=== PATIENT | female | born 1950 | race Caucasian/White ===

== ENCOUNTER → 2016-08-07 | Outpatient (CLI) | payer BC, OTHER ==
[2016-08-07 11:40] LABS: ALKALINE PHOSPHATASE 93 U/L (45-117); ALT/SGPT 46 U/L (12-78); AST/SGOT 20 U/L (15-37); BLOOD UREA NITROGEN 18 mg/dl (7-18); BUN/CREATININE RATIO 23.3 (10-20); CALCIUM 9.3 mg/dl (8.5-10.1); CARBON DIOXIDE 26 mmol/L (21-32); CHLORIDE 106 mmol/L (98-107); CREATININE 0.79 mg/dl (0.60-1.20); GLUCOSE 102 mg/dl (70-99); POTASSIUM 3.8 mmol/L (3.5-5.1); SODIUM 143 mmol/L (136-145)
[2016-08-07 11:46] LABS: ALB/GLOB RATIO 1.2 (0.9-2); CHOLESTEROL 138 mg/dl (0-200); CHOLESTEROL/HDL RATIO 2.5; HDL CHOLESTEROL 55 mg/dl; LDL CHOLESTEROL CALCULATED 60 mg/dl; TRIGLYCERIDES 113 mg/dl (0-150); VERY LOW DENSITY LIPOPROT CALC 23 mg/dl
== END | disposition home or self-care (01) ==
LOC: C.LAB1850 07:53
PROVIDERS: ATTEND Internal Medicine
DX: I25.10 Atherosclerotic heart disease of native coronary artery without angina pectoris (principal); E78.00 Pure hypercholesterolemia, unspecified

== ENCOUNTER → 2017-03-20 | Outpatient (CLI) | payer BC, OTHER ==
--- NOTE | 2017-03-21 14:21 | MAMMOGRAPHY REPORT ---
BILATERAL DIGITAL SCREENING MAMMOGRAM TOMOSYNTHESIS WITH CAD: 03/20/2017 CLINICAL HISTORY: Routine screening. Patient has no complaints. TECHNIQUE: Breast tomosynthesis in addition to standard 2D mammography was performed. Current study was also evaluated with a Computer Aided Detection (CAD) system. COMPARISON: Comparison is made to exams dated: 03/16/2016 mammogram, 03/30/2015 mammogram, 03/16/2015 [facility] - [facility], and 07/16/2012 mammogram - [facility]. BREAST COMPOSITION: There are scattered areas of fibroglandular density in both breasts. FINDINGS: The parenchymal pattern is unchanged. No developing mass, architectural distortion or clus ter of suspicious microcalcifications is seen in either breast. IMPRESSION: ACR BI-RADS CATEGORY 2: BENIGN There is no mammographic evidence of malignancy. A 1 year screening mammogram is recommended. The pa tient will receive written notification of the results. Approximately 10% of breast cancers are not detected with mammography. A negative mammographic report should not delay biopsy if a clinically suggestive mass is present. Kanwal Ellington M.D. ay/:03/20/2017 18:24:40 Security Screener: Genevieve Gibbons [facility] letter sent: Normal 1/2 BI-RADS Code: ACR BI-RADS Category 2: Benign
== END | disposition home or self-care (01) ==
LOC: C.MAMM 07:10
PROVIDERS: ATTEND Internal Medicine
DX: Z12.31 Encounter for screening mammogram for malignant neoplasm of breast (principal)

== ENCOUNTER → 2017-03-26 | Outpatient (CLI) | payer BC, OTHER ==
[2017-03-26 10:34] LABS: BASO % 0.5 %; BASO ABS # 0.03 K/uL (0-0.2); COMPLETE YES; EOS % 3.8 %; HEMATOCRIT 48.3 % (37-47); IG% 0.3 %; LYMPH % 38.8 %; LYMPH ABS # 2.54 K/uL (1.2-3.4); MEAN CELL VOLUME 97.6 fL (80-100); MEAN CORPUSCULAR HEMOGLOBIN 33.5 pg (25-34); MEAN CORPUSCULAR HGB CONC 34.4 g/dl (32-36); MONO % 8.5 %; NEUT % 48.1 %; PLATELET COUNT 211 K/uL (130-400); RED BLOOD COUNT 4.95 M/uL (4.2-5.4); WHITE BLOOD COUNT 6.55 K/uL (4.8-10.8)
[2017-03-26 11:09] LABS: BLOOD UREA NITROGEN 17 mg/dl (7-18); BUN/CREATININE RATIO 25.4 (10-20); CALCIUM 10.1 mg/dl (8.5-10.1); CARBON DIOXIDE 30 mmol/L (21-32); CHLORIDE 102 mmol/L (98-107); CREATININE 0.66 mg/dl (0.60-1.20); GLUCOSE 94 mg/dl (70-99); SODIUM 139 mmol/L (136-145)
== END | disposition home or self-care (01) ==
LOC: C.LAB1850 09:14
PROVIDERS: ATTEND Internal Medicine
DX: Z00.00 Encounter for general adult medical examination without abnormal findings (principal); I25.10 Atherosclerotic heart disease of native coronary artery without angina pectoris; R89.9 Unspecified abnormal finding in specimens from other organs, systems and tissues

== ENCOUNTER → 2017-03-27 | Outpatient (CLI) | payer BC, OTHER ==
--- NOTE | 2017-03-27 11:40 | DIAGNOSTIC IMAGING REPORT ---
CHEST 2 VIEWS ROUTINE CLINICAL HISTORY: 66 years-old Female presenting with chronic cough and back pain. TECHNIQUE: PA and lateral views of the chest were obtained. COMPARISON: 02/04/2016. FINDINGS: Atherosclerosis of aortic arch. Cardiac silhouette normal in size. No other focal infiltrate. No pleural effusion or pneumothorax. Osseous structures normal. Upper abdomen normal. IMPRESSION: 1. No convincing evidence of acute cardiopulmonary disease. Electronically signed by: Rahat Cook M.D. 03/27/2017 11:39 AM Dictated Date/Time: 03/27/2017 11:38 AM
--- NOTE | 2017-03-27 11:48 | DIAGNOSTIC IMAGING REPORT ---
L-SPINE MIN 4 VIEWS ROUTINE CLINICAL HISTORY: R05 Chronic [id number] low back pain COMPARISON STUDY: No previous studies for comparison. FINDINGS: There are 5 lumbar type vertebral bodies present. There are mild to moderate multilevel degenerative changes. No fractures or subluxations are visualized. No destructive lesions are evident. There are extensive vascular calcifications. There are surgical clips in the right upper quadrant consistent with a prior cholecystectomy. IMPRESSION: 1. Degenerative change. No fractures or subluxations identified. Electronically signed by: Hammad Her M.D. 03/27/2017 11:47 AM Dictated Date/Time: 03/27/2017 11:46 AM
== END | disposition home or self-care (01) ==
LOC: C.RAD1850 09:18
PROVIDERS: ATTEND Internal Medicine
DX: R05 Cough (principal); M54.5 Low back pain

== ENCOUNTER → 2017-06-06 | Outpatient (CLI) | payer BC, OTHER ==
[~2017-06-06] MED LIST: ACET-1256 PO; AMT10 PO; ASPI81TA28 PO; ATV/1 PO; B-CO1CAP17 PO; BNC40 PO; DOCU100C31 PO; HYDR25TA4 PO; MULT-190 PO; MULT-603 PO; OMEG1CAP71 PO; PROB1CAP41 PO; ROSU20TA PO; TPRSR/100 PO; vitamin b 12 PO
[2017-06-06 16:23] LABS: MANUAL MICROSCOPIC REQUIRED? NO; REVIEW REQ? NO; URINE APPEARANCE CLEAR (CLEAR); URINE BILIRUBIN NEG (NEG); URINE COLOR YELLOW; URINE NITRITE NEG (NEG); URINE PH 5.5 (4.5-7.5); URINE SPECIFIC GRAVITY 1.018 (1.000-1.030); UROBILINOGEN NEG (NEG)
[2017-06-06 16:30] LABS: PROTHROMBIN TIME (PATIENT) 10.7 SECONDS (9.0-12.0)
== END | disposition home or self-care (01) ==
LOC: C.LAB 14:38
PROVIDERS: ATTEND Orthopaedic Surgery Orthopaedic Surgery of the Spine
DX: Z01.818 Encounter for other preprocedural examination (principal)

== ENCOUNTER 2017-06-18 08:32 | Inpatient (IN) | payer OTHER, BC ==
[2017-06-06 15:14] VITALS: BMI 35.0
--- NOTE | 2017-06-06 15:57 | PAT Medication Instructions ---
Service Date Jun 06, 2017. Current Home Medication List Acetaminophen (Tylenol), 1,000 MG PO DAILY PRN for Pain or Fever Amitriptyline HCl (Amitriptyline HCl), 1 TAB PO HS Aspirin (Aspirin Ec), 81 MG PO QAM Docusate Sodium (Docusate Sodium), 1 CAP PO BID Hydrochlorothiazide (Hctz), 1 TAB PO QAM Lorazepam (Ativan), 1 MG PO DAILY PRN for Anxiety/Agitation Metoprolol Succinate (Metoprolol Succinate ER), 100 MG PO QAM Multiple Vitamins W/ Minerals (Womens Multi Vitamin & Mi), 1 TAB PO QAM Ocuvite Preservision (Ocuvite Preservision), 1 TAB PO BID Olmesartan Medoxomil (Benicar), 1 TAB PO QAM [place] 3 Fatty Acids-[place] 6 Fa ([place] 3-6-9 Complex), 2 CAP PO QPM Probiotic Product (Probiotic Daily), 1 TAB PO QAM Rosuvastatin Calcium (Crestor), 20 MG PO QPM Vitamin B Cmplx/Vitc/Folic Ac (Nephrocaps), 1 CAP PO QAM [vitamin b 12], 1 CAP PO QAM Medication Instructions For Your Scheduled Surgery - Hold the following medications 2 weeks prior to surgery: [place] 3 Fatty Acids-[place] 6 Fa ([place] 3-6-9 Complex), 2 CAP PO QPM - Hold the following medications the morning of surgery: Probiotic Product (Probiotic Daily), 1 TAB PO QAM Vitamin B Cmplx/Vitc/Folic Ac (Nephrocaps), 1 CAP PO QAM [vitamin b 12], 1 CAP PO QAM Olmesartan Medoxomil (Benicar), 1 TAB PO QAM Ocuvite Preservision (Ocuvite Preservision), 1 TAB PO BID Docusate Sodium (Docusate Sodium), 1 CAP PO BID Multiple Vitamins W/ Minerals (Womens Multi Vitamin & Mi), 1 TAB PO QAM Hydrochlorothiazide (Hctz), 1 TAB PO QAM - Take the following medications the morning of surgery with a sip of water OTHERWISE NOTHING TO EAT OR DRINK AFTER MIDNIGHT: Aspirin (Aspirin Ec), 81 MG PO QAM (okay to continue per surgeon) Metoprolol Succinate (Metoprolol Succinate ER), 100 MG PO QAM Acetaminophen (Tylenol), 1,000 MG PO DAILY PRN for Pain or Fever (okay to take if needed up to 4 hours prior to surgery) Lorazepam (Ativan), 1 MG PO DAILY PRN for Anxiety/Agitation - Take the following medications as scheduled the night before surgery: Rosuvastatin Calcium (Crestor), 20 MG PO QPM Amitriptyline HCl (Amitriptyline HCl), 1 TAB PO HS Acetaminophen (Tylenol), 1,000 MG PO DAILY PRN for Pain or Fever Ocuvite Preservision (Ocuvite Preservision), 1 TAB PO BID Docusate Sodium (Docusate Sodium), 1 CAP PO BID Lorazepam (Ativan), 1 MG PO DAILY PRN for Anxiety/Agitation If you have any questions please call us at [phone] or [phone] or [phone]
--- NOTE | 2017-06-17 14:49 | HISTORY & PHYSICAL EXAMINATION ---
DATE OF ADMISSION: 06/18/2017 PREOPERATIVE HISTORY AND PHYSICAL CHIEF COMPLAINT: Back and lower extremity difficulty with paresthesias, numbness and tingling. She has spinal stenosis and degenerative disk disease of the spine, particularly L4-L5 and L5-S1. She is scheduled for a laminectomy and fusion L4-L5 and L5-S1 with interbody, that will be tomorrow. PAST MEDICAL HISTORY: Positive for skin carcinoma, basal cell. Spine and neck problems, hiatal hernia, obesity; no kidney or liver disease, hypertension, angioplasty, numbness and tingling. PAST SURGICAL HISTORY: Includes hysterectomy, hemorrhoid surgery, lymph node resection, eye surgery, and cataract. ALLERGIES: PENICILLIN, CODEINE. MEDICATIONS: Metoprolol, hydrochlorothiazide, Benicar, aspirin, Crestor, amitriptyline. REVIEW OF SYSTEMS: She denies any blurred vision, tinnitus, occasional headaches. Denies any current chest pain, palpitations, swelling to the extremities. Denies any shortness of breath, asthma, wheezing. No nausea, vomiting, urgency, frequency or loss of bowel or bladder function or cauda equina concerns. Her major complaint is her lower extremity with pain, numbness, tingling and weakness, and inability to ambulate distances. PHYSICAL EXAMINATION: GENERAL: She is 66. She is 5 foot 7 inches; she is 220 pounds. She is alert, oriented. VITAL SIGNS: Blood pressure 130/80. Pulse regular at 80 beats per minute. Afebrile. CARDIAC: Normal S1, S2, no S3, no ectopy, no edema to the extremities. LUNGS: No wheezing or rhonchi. ABDOMEN: Bowel sounds present in all quadrants, slightly obese but no pain. SKIN AND INTEGUMENTARY: kirit intact. No rashes or ulcerations. NEUROLOGIC: Intact, 5/5 strength, good sensation, no gross deficit, slight gait abnormality, positive tension sign on the left hand side with straight leg raising. IMAGING DATA: Images demonstrate degenerative changes of significance and stenosis of the spine and moderate narrowing at L4-5 and L5-S1. IMPRESSION: Delightful young lady with hypertension, high cholesterol, cardiac history with spinal stenosis of lumbar spine L4-L5 and L5-S1. DISPOSITION: She is scheduled for elective spinal surgery tomorrow at [facility], laminectomy and fusion L4-L5 and L5-S1 with interbody.
[~2017-06-18] VITALS: Ht 160 cm; Wt 89.4 kg
[2017-06-18] VITALS (8 sets, daily range): BP systolic 88–151; BP diastolic 62–103; PULSE 64–71; TEMP 36.2–36.5; O2SAT 91–97; Ht 160 cm; Wt 89.4 kg
[~2017-06-18 08:32] MED LIST changes: +CEFAZOLIN 2000MG IV PUSH 10 ML IV SCH; +FENTANYL CITRATE INJ 50 MCG/1 ML 2 ML VIAL ONE; +LACTATED RINGER'S 1000ML IV SCH; +MIDAZOLAM HCL 1 MG/ML 2ML VIAL ONE; +NSS 1000ML IV SCH; +TPRSR/25 PO
[2017-06-18] MEDS ORDERED: EpHEDrine SULFATE 50MG/5ML SYR ONE (09:13)
[2017-06-18] MEDS ORDERED: PROPOFOL IV EMULSION 10 MG/ML 20 ML VIAL IV ONE (09:13)
[2017-06-18] MEDS ORDERED: NEOSTIGMINE METHYLSULFATE 5 MG/5 ML SYR ONE (09:13)
[2017-06-18] MEDS ORDERED: LARYING-O-JET KIT (LTA) ONE ×2 (09:13)
[2017-06-18] MEDS ORDERED: DEXAMETHASONE SOD INJ 4 MG/ML VIAL ONE (09:13)
[2017-06-18] MEDS ORDERED: ONDANSETRON INJ 2 MG/ML 2 ML VIAL ONE (09:13)
[2017-06-18] MEDS ORDERED: GLYCOPYRROLATE INJ 0.2 MG/ML VIAL ONE (09:13)
[2017-06-18] MEDS ORDERED: ROCURONIUM BROMIDE 10 MG/ML 5 ML VIAL IV ONE (09:13)
[2017-06-18] MEDS ORDERED: LIDOCAINE HCL 2% 2 ML VIAL (20MG/ML) ONE (09:13)
[2017-06-18] MEDS ORDERED: GELATIN SPONGE SZ 100 ONE (10:16)
[2017-06-18] MEDS ORDERED: THROMBIN FOR SOLN 20000 UNIT KIT ONE (10:16)
[2017-06-18] MEDS ORDERED: BUPIVACAINE/EPINEPHRINE 0.5% MPF 1:200,000 30 ML VIAL ONE (10:17)
[2017-06-18] MEDS ORDERED: VANCOMYCIN HCL 1000MG/20ML VIAL ONE (10:17)
[2017-06-18] MEDS ORDERED: BACITRACIN 50000 UNIT VIAL ONE (10:17)
--- NOTE | 2017-06-18 10:26 | History & Physical Bridge Note ---
H&P Re-Evaluation Bridge Note: I have examined the patient, reviewed the History & Physical and in the interval since the performance of the History & Physical I have noted the following changes of clinical significance: No changes noted
[2017-06-18] MEDS ORDERED: CLINDAMYCIN IV 900 MG in DEXTROSE 5% 50ML IV SCH (10:45)
[2017-06-18] MEDS ORDERED: HYDROmorphone INJ 2 MG/ML SYR/VIAL ONE (11:28)
[2017-06-18] MEDS ORDERED: ATROPINE SULFATE 0.1 MG/ML 5ML SYR IV PRN (12:15)
[2017-06-18] MEDS ORDERED: HYDROmorphone INJ 2 MG/ML SYR/VIAL IV PRN (12:15)
[2017-06-18] MEDS ORDERED: LABETALOL HCL IV 5 MG/ML 20ML IV PRN (12:15)
[2017-06-18] MEDS ORDERED: ONDANSETRON INJ 2 MG/ML 2 ML VIAL IV PRN ×2 (12:15→13:45)
--- NOTE | 2017-06-18 13:14 | DIAGNOSTIC IMAGING REPORT ---
SPINE ONE VIEW, ANY LEVEL HISTORY: Laminectomy. Fusion.. FLUOROSCOPY TIME: 5 seconds. FINDINGS: Intraoperative fluoroscopy was provided for the lumbar spine. 1 fluoroscopic spot images were obtained. IMPRESSION: Fluoroscopy provided for a L4-S1 laminectomy and fusion. The above report was generated using voice recognition software. It may contain grammatical, syntax or spelling errors. Electronically signed by: Oliver Allan M.D. 06/18/2017 1:13 PM Dictated Date/Time: 06/18/2017 1:12 PM
[2017-06-18] MEDS ORDERED: SODIUM CHLORIDE 0.9% 1000ML 1,000 ML IV SCH (13:37)
--- NOTE | 2017-06-18 13:39 | [facility] Post Operative Brief Note ---
Immediate Operative Summary Operative Date Jun 18, 2017. Pre-Operative Diagnosis Degenerative disc disease Post-Operative Diagnosis Degenerative disc disease Procedure(s) Performed L4-L5, L5-S1 Laminectomy and Fusion with Interbody placement at L5-S1 Surgeon Dr. Jersey Madden Gang Hemstitching Machine Operator Surgeon(s) Min Reed Estimated Blood Loss 300ml Findings stenosis and instability Specimens none per surgeon Complication(s) None Disposition Recovery Room / PACU
[2017-06-18] MEDS ORDERED: LORAZEPAM 1 MG TAB PO PRN ×2 (13:45)
[2017-06-18] MEDS ORDERED: MAGNESIUM HYDROXIDE SUSP 30 ML UDC PO PRN (13:45)
[2017-06-18] MEDS ORDERED: PROMETHAZINE HCL INJ 12.5 MG in SODIUM CHLORIDE 0.9% 50ML 50 ML IV PRN (13:45)
[2017-06-18] MEDS ORDERED: HYDROmorphone HCL 0.5MG/ML 50 ML CASSETTE IV PRN (13:45)
[2017-06-18] MEDS ORDERED: LORAZEPAM INJ 1 MG in SYRINGE 0 ML IV PRN (13:45)
[2017-06-18] MEDS ORDERED: ACETAMINOPHEN 325 MG TAB PO PRN (13:45)
[2017-06-18] MEDS ORDERED: NALOXONE HCL 0.4 MG/1 ML VIAL/CARP IV PRN (13:45)
[2017-06-18] MEDS ORDERED: METOCLOPRAMIDE HCL INJ 5 MG/ML 2 ML VIAL IV PRN (13:45)
[2017-06-18] MEDS ORDERED: HYDROmorphone HCL 0.5MG/ML 50 ML CASSETTE ONE (13:48)
--- NOTE | 2017-06-18 14:12 | OPERATIVE REPORT ---
DATE OF OPERATION: 06/18/2017 PREOPERATIVE DIAGNOSES: Degenerative arthritis, lumbar spine; facet arthritis, instability, lumbar spine L4-L5; stenosis L4-L5 and L5-S1. POSTOPERATIVE DIAGNOSES: Same. PROCEDURE: 1. Lumbar spine laminectomy, decompression of the neural elements L4-L5 and S1, foraminotomy, partial facetectomy. 2. Pedicle screw instrumentation, L4-L5 and the sacrum. 3. Posterior lumbar interbody fusion, L5-S1. 4. Posterior lateral fusion L4-L5, sacrum. COMPLICATIONS: Zero. BLOOD LOSS: 300. SURGEON: Dr. Madden. ELECTRONIC INSTRUMENT TRADES WORKER: Min Nieves PA-C. ANESTHETIC: General. DESCRIPTION OF PROCEDURE: The patient was taken to the operating room and general intubated, anesthetic provided to the patient. Beckman catheter administered. Preop antibiotics delivered. She was safely placed prone on the Maurilio table. She was scrubbed, prepped and draped sterile. We commenced surgery. I made a skin incision, fascial incision and dissected down to the facet joints and transverse processes. We put in a deep self-retaining retractor. We were able to do a decompression of the neural elements for an exceedingly tight canal starting down below the part of the lamina of S1, all lamina 5, all laminar L4, foraminotomy, partial facetectomies provided. We took off a significant amount of ligamentum flavum hypertrophy. I was pleased with the decompression. I judged instability preop and interop. We were able to safely get pedicle screws L5, L4, S1 bilaterally with the [employer]. I was pleased with the positioning. We went on to the interbody portion of the procedure retracting the dura over on the left hand side, did a complete diskectomy of L5-S1 foraminotomy. We grafted up to a size 10, put in a 10 mm juan interbody device from the [employer]. It measured 10 mm in height, 10 mm in width, and 26 mm in length, it was packed with autogenous bone. We irrigated, closed in layers. Sterile dressings applied. We closed with vancomycin powder and a Hemovac drain. Sterile dressing was applied. The patient returned to PACU stable. Sponge and needle count correct. No complications once again. I attest to the content of the Intraoperative Record and any orders documented therein. Any exception s are noted below.
--- NOTE | 2017-06-18 14:29 | Anesthesiology Progress Note ---
Anesthesia Post Op Note Date & Time Jun 18, 2017 at 14:29 Vital Signs Pain Intensity: 1 Vital Signs Past 12 Hours Date Time Temp Pulse Resp B/P (MAP) Pulse Ox O2 Delivery O2 Flow Rate FiO2 06/18/17 14:26 36.5 110/74 06/18/17 14:25 71 16 100 06/18/17 14:25 70 16 06/18/17 14:21 106/74 06/18/17 14:20 59 14 99 06/18/17 14:20 60 14 06/18/17 14:16 86/68 06/18/17 14:15 58 14 06/18/17 14:15 58 14 99 06/18/17 14:11 113/58 06/18/17 14:10 61 7 06/18/17 14:10 61 7 100 06/18/17 14:06 108/69 06/18/17 14:05 60 11 06/18/17 14:05 60 11 100 06/18/17 14:01 111/72 06/18/17 14:00 67 19 06/18/17 14:00 67 19 100 06/18/17 13:58 113/85 06/18/17 13:56 82/63 06/18/17 13:55 58 7 100 06/18/17 13:55 59 7 06/18/17 13:51 84/61 06/18/17 13:50 58 12 06/18/17 13:50 58 12 99 06/18/17 13:46 89/50 06/18/17 13:45 58 10 06/18/17 13:45 58 10 99 06/18/17 13:42 93/59 06/18/17 13:35 36.4 63 12 95/66 100 Oxymask 10 06/18/17 08:55 36.4 66 20 151/103 97 Room Air Notes Mental Status: alert / awake / arousable, participated in evaluation Pt Amnestic to Procedure: Yes Nausea / Vomiting: adequately controlled Pain: adequately controlled Airway Patency, RR, SpO2: stable & adequate BP & HR: stable & adequate Hydration State: stable & adequate Anesthetic Complications: no major complications apparent
[2017-06-18 16:20] LABS: HEMATOCRIT 38.3 % (37-47)
[2017-06-18] MEDS: HYDROmorphone HCL 0.5MG/ML 50 ML CASSETTE IV PRN ×2 (16:32→23:20)
[2017-06-18] MEDS: SODIUM CHLORIDE 0.9% 1000ML 1,000 ML IV SCH (16:50)
[2017-06-18] MEDS: KETOROLAC TROMETHAMINE 30 MG/ML VIAL IV SCH ×2 (16:52→22:17)
[2017-06-18] MEDS: CLINDAMYCIN IV 600 MG in DEXTROSE 5% 50ML 50 ML IV SCH (18:14)
[2017-06-18] MEDS: DEXAMETHASONE INJ 10 MG in SYRINGE 0 ML IV SCH (18:49)
[2017-06-18] MEDS: OMEGA-3 (PURIFIED FISH OIL) 1 GM CAP PO SCH (21:20)
[2017-06-18] MEDS: AMITRIPTYLINE HCL 10 MG TAB PO SCH (21:20)
[2017-06-18] MEDS: CEROVITE ADV FORMULA TAB PO SCH (21:20)
[2017-06-18] MEDS: ROSUVASTATIN CALCIUM 20 MG TAB PO SCH (21:20)
[2017-06-18] MEDS: DOCUSATE SODIUM 100 MG CAP PO SCH (21:20)
[2017-06-19] VITALS (8 sets, daily range): BP systolic 95–137; BP diastolic 61–81; PULSE 63–80; TEMP 36.4–36.7; O2SAT 90–98
[2017-06-19] MEDS: DEXAMETHASONE INJ 10 MG in SYRINGE 0 ML IV SCH ×3 (01:50→17:50)
[2017-06-19] MEDS: CLINDAMYCIN IV 600 MG in DEXTROSE 5% 50ML 50 ML IV SCH (01:50)
[2017-06-19] MEDS: SODIUM CHLORIDE 0.9% 1000ML 1,000 ML IV SCH (02:07)
[2017-06-19] MEDS: KETOROLAC TROMETHAMINE 30 MG/ML VIAL IV SCH ×3 (03:41→15:39)
[2017-06-19] MEDS ORDERED: HYDROmorphone INJ 1 MG/ML SYR IV PRN (06:00)
[2017-06-19] MEDS ORDERED: DC PCA ONE (06:00)
[2017-06-19] MEDS ORDERED: BISACODYL 5 MG TABEC PO PRN (06:00)
[2017-06-19] MEDS ORDERED: HYDROmorphone INJ 2 MG/ML SYR/VIAL IV PRN (06:00)
[2017-06-19] MEDS ORDERED: BISACODYL 10 MG SUPP PR PRN (06:00)
[2017-06-19] MEDS ORDERED: NURSING VERBAL MED ORDER ONE ×2 (07:15→10:00)
--- NOTE | 2017-06-19 08:00 | Anesthesiology Progress Note ---
Anesthesia Post Op Note Date & Time Jun 19, 2017 at 08:00 Vital Signs Pain Intensity: 8.0 Vital Signs Past 12 Hours Date Time Temp Pulse Resp B/P (MAP) Pulse Ox O2 Delivery O2 Flow Rate FiO2 06/19/17 07:16 36.6 63 18 95/66 (76) 93 Nasal Cannula 2.0 06/19/17 03:30 36.4 76 16 98/61 (73) 92 Nasal Cannula 2.0 06/18/17 23:15 Room Air 06/18/17 23:14 36.4 71 17 99/64 (76) 91 Room Air Notes Mental Status: alert / awake / arousable, participated in evaluation Pt Amnestic to Procedure: Yes Nausea / Vomiting: adequately controlled Pain: adequately controlled Airway Patency, RR, SpO2: stable & adequate BP & HR: stable & adequate Hydration State: stable & adequate Anesthetic Complications: no major complications apparent
[2017-06-19] MEDS: METOPROLOL SUCC 25MG EXT REL TAB PO SCH (08:34)
[2017-06-19] MEDS: METOPROLOL SUCC 50MG EXT REL TAB PO SCH (08:35)
[2017-06-19] MEDS: CEROVITE ADV FORMULA TAB PO SCH ×2 (08:36→21:42)
[2017-06-19] MEDS: ASPIRIN 81 MG ECTAB PO SCH (08:37)
[2017-06-19] MEDS: POLYETHYLENE (MIRALAX) 17 GM PACK PO SCH (08:37)
[2017-06-19] MEDS: NEPHROCAPS PO SCH (08:37)
[2017-06-19] MEDS: DOCUSATE SODIUM 100 MG CAP PO SCH ×2 (08:37→21:42)
[2017-06-19] MEDS: LACTOBACILLUS ACIDOPHILUS (FLORANEX) TAB PO SCH (08:37)
[2017-06-19] MEDS: OXYCODONE/ACETAMINOPHEN 5-325 TAB PO PRN ×4 (08:44→22:16)
[2017-06-19] MEDS ORDERED: CEROVITE ADV FORMULA TAB PO SCH (09:00)
[2017-06-19] MEDS: OLMESARTAN MEDOXOMIL 40 MG TAB PO SCH (09:00)
[2017-06-19] MEDS ORDERED: VITAMIN B PO SCH (09:00)
[2017-06-19] MEDS: HYDROCHLOROTHIAZIDE 25 MG TAB PO SCH (09:00)
--- NOTE | 2017-06-19 15:37 | Discharge Instructions ---
Discharge Instructions Date of Service Jun 19, 2017. Admission Reason for Admission: Lumbar Spinal Stenosis, Degenerative Disc Disease Discharge Discharge Diagnosis / Problem: same Discharge Goals Goal(s): Improve function Activity Recommendations Activity Limitations: as noted below Lifting Limitations: until after follow-up appointment Exercise/Sports Limitations: until after follow-up appointment May Resume Sexual Activity: after follow-up appointment Shower/Bathe: keep incision dry . Current Hospital Diet Patient's current hospital diet: Regular Diet Discharge Diet Recommended Diet: Regular Diet Procedures Procedures Performed: L4-L5, L5-S1 Laminectomy and Fusion with Interbody placement at L5-S1 Pending Studies Studies pending at discharge: no Medical Emergencies . Who to Call and When: Medical Emergencies: If at any time you feel your situation is an emergency, please call 911 immediately. . Non-Emergent Contact Non-Emergency issues call your: Surgeon . "Provider Documentation" section prepared by Jersey Madden. . VTE Core Measure Inpt VTE Proph given/why not?: Treatment not indicated
--- NOTE | 2017-06-19 15:43 | ORTHOPEDICS PROGRESS NOTE ---
DATE: 06/19/2017 SUBJECTIVE: Alert, oriented pain, relatively controlled, still some weakness and inability to ambulate and decreased ability to stand up. OBJECTIVE: VITAL SIGNS: Stable. GENERAL: Alert, oriented, moves extremities slightly weak. SKIN: Wound clean. LABORATORY DATA: Hemoglobin 12.9. ASSESSMENT: Reconstructive spine surgery day #1. DISPOSITION: We will get her up and ambulatory here today. We will put a petition in for [facility]. We will see her tomorrow, hopefully get her out the door tomorrow.
[2017-06-19] MEDS: AMITRIPTYLINE HCL 10 MG TAB PO SCH (21:42)
[2017-06-19] MEDS: OMEGA-3 (PURIFIED FISH OIL) 1 GM CAP PO SCH (21:42)
[2017-06-19] MEDS: ROSUVASTATIN CALCIUM 20 MG TAB PO SCH (21:43)
[2017-06-20] MEDS: DEXAMETHASONE INJ 10 MG in SYRINGE 0 ML IV SCH (01:48)
[2017-06-20] MEDS: OXYCODONE/ACETAMINOPHEN 5-325 TAB PO PRN ×2 (07:29→12:25)
[2017-06-20 07:54] VITALS: BP 134/70; PULSE 80; TEMP 36.6; O2SAT 94
[2017-06-20 08:08] VITALS: O2SAT 94
[2017-06-20] MEDS: HYDROCHLOROTHIAZIDE 25 MG TAB PO SCH (08:33)
[2017-06-20] MEDS: ASPIRIN 81 MG ECTAB PO SCH (08:33)
[2017-06-20] MEDS: LACTOBACILLUS ACIDOPHILUS (FLORANEX) TAB PO SCH (08:33)
[2017-06-20] MEDS: OLMESARTAN MEDOXOMIL 40 MG TAB PO SCH (08:33)
[2017-06-20] MEDS: POLYETHYLENE (MIRALAX) 17 GM PACK PO SCH (08:33)
[2017-06-20] MEDS: NEPHROCAPS PO SCH (08:33)
[2017-06-20] MEDS: METOPROLOL SUCC 50MG EXT REL TAB PO SCH (08:33)
[2017-06-20] MEDS: METOPROLOL SUCC 25MG EXT REL TAB PO SCH (08:34)
[2017-06-20] MEDS: DOCUSATE SODIUM 100 MG CAP PO SCH (08:57)
[2017-06-20] MEDS: CEROVITE ADV FORMULA TAB PO SCH (08:57)
[2017-06-20 11:11] VITALS: BP 134/70; PULSE 80; TEMP 36.6; O2SAT 94
== END 2017-06-20 13:48 | DRG 455 ==
LOC: C.ACU 08:32 → C.3E 10:00 → ENRESERV 14:15
PROVIDERS: ADMIT Orthopaedic Surgery Orthopaedic Surgery of the Spine; ATTEND Orthopaedic Surgery Orthopaedic Surgery of the Spine
PROC: 0SG0071 Fusion of Lumbar Vertebral Joint with Autologous Tissue Substitute, Posterior Approach, Posterior Column, Open Approach (ICD-10-PCS; principal; 2017-06-18 10:30)
PROC: 01NB0ZZ Release Lumbar Nerve, Open Approach (ICD-10-PCS; principal; 2017-06-18 10:30)
PROC: 01NR0ZZ Release Sacral Nerve, Open Approach (ICD-10-PCS; principal; 2017-06-18 10:30)
PROC: 0ST40ZZ Resection of Lumbosacral Disc, Open Approach (ICD-10-PCS; principal; 2017-06-18 10:30)
PROC: 0SG3071 Fusion of Lumbosacral Joint with Autologous Tissue Substitute, Posterior Approach, Posterior Column, Open Approach (ICD-10-PCS; principal; 2017-06-18 10:30)
PROC: 0SG30AJ Fusion of Lumbosacral Joint with Interbody Fusion Device, Posterior Approach, Anterior Column, Open Approach (ICD-10-PCS; principal; 2017-06-18 10:30)
DX: M48.061 Spinal stenosis, lumbar region without neurogenic claudication (principal); M48.07 Spinal stenosis, lumbosacral region; M51.16 Intervertebral disc disorders with radiculopathy, lumbar region; I10 Essential (primary) hypertension; E78.00 Pure hypercholesterolemia, unspecified; I25.10 Atherosclerotic heart disease of native coronary artery without angina pectoris; F32.9 Major depressive disorder, single episode, unspecified; E66.9 Obesity, unspecified; Z68.34 Body mass index [BMI] 34.0-34.9, adult; I25.2 Old myocardial infarction; Z98.61 Coronary angioplasty status; Z85.828 Personal history of other malignant neoplasm of skin; Z87.891 Personal history of nicotine dependence; Z79.82 Long term (current) use of aspirin; Z79.899 Other long term (current) drug therapy; Z88.0 Allergy status to penicillin; Z88.5 Allergy status to narcotic agent

== ENCOUNTER → 2017-08-06 | Outpatient (CLI) | payer OTHER, BC ==
[~2017-08-06] MED LIST changes: -CEFAZOLIN 2000MG IV PUSH 10 ML IV SCH; -FENTANYL CITRATE INJ 50 MCG/1 ML 2 ML VIAL ONE; -LACTATED RINGER'S 1000ML IV SCH; -MIDAZOLAM HCL 1 MG/ML 2ML VIAL ONE; -NSS 1000ML IV SCH
== END | disposition home or self-care (01) ==
LOC: C.LAB1850 10:44
PROVIDERS: ATTEND Internal Medicine
DX: R39.9 Unspecified symptoms and signs involving the genitourinary system (principal)

== ENCOUNTER → 2017-09-24 | Outpatient (CLI) | payer OTHER, BC ==
[2017-09-24 10:08] LABS: BASO % 0.6 %; BASO ABS # 0.05 K/uL (0-0.2); EOS % 4.8 %; EOS ABS # 0.37 K/uL (0-0.5); HEMOGLOBIN 15.3 g/dL (12.0-16.0); IG# 0.01 K/uL (0.00-0.02); LYMPH % 40.3 %; LYMPH ABS # 3.12 K/uL (1.2-3.4); MEAN CORPUSCULAR HEMOGLOBIN 30.6 pg (25-34); MONO % 7.8 %; NEUT % 46.4 %; NEUT ABS # 3.59 K/uL (1.4-6.5); PLATELET COUNT 221 K/uL (130-400); RED CELL DISTRIBUTION WIDTH CV 13.1 % (11.5-14.5); RED CELL DISTRIBUTION WIDTH SD 43.4 fL (36.4-46.3); WHITE BLOOD COUNT 7.74 K/uL (4.8-10.8)
[2017-09-24 10:57] LABS: ALBUMIN 4.2 gm/dl (3.4-5.0); ALT/SGPT 36 U/L (12-78); BLOOD UREA NITROGEN 14 mg/dl (7-18); CALCIUM 10.1 mg/dl (8.5-10.1); CARBON DIOXIDE 31 mmol/L (21-32); CHOLESTEROL 115 mg/dl (0-200); CREATININE 0.87 mg/dl (0.60-1.20); GLUCOSE 93 mg/dl (70-99); POTASSIUM 4.2 mmol/L (3.5-5.1); SODIUM 141 mmol/L (136-145)
[2017-09-24 11:06] LABS: ALKALINE PHOSPHATASE 101 U/L (45-117); AST/SGOT 27 U/L (15-37); LDL CHOLESTEROL CALCULATED 35 mg/dl; TOTAL PROTEIN 7.6 gm/dl (6.4-8.2)
== END | disposition home or self-care (01) ==
LOC: C.LAB1850 08:49
PROVIDERS: ATTEND Internal Medicine
DX: I10 Essential (primary) hypertension (principal); R53.83 Other fatigue; D58.2 Other hemoglobinopathies; R51 Headache

== ENCOUNTER → 2018-02-28 | Outpatient (CLI) | payer OTHER, BC ==
[~2018-02-28] MED LIST changes: -B-CO1CAP17 PO; +B-COCAP2 PO
== END | disposition home or self-care (01) ==
LOC: C.PATHSPEC 17:17
PROVIDERS: ATTEND Obstetrics & Gynecology
DX: L72.0 Epidermal cyst (principal); L85.9 Epidermal thickening, unspecified